=== PATIENT | male | born 1960 | race African-American/Black ===

== ENCOUNTER 2017-11-10 11:57 | Inpatient (IN) | payer OTHER ==
[~2017-11-10] VITALS: Ht 172.7 cm; Wt 79.0 kg
--- NOTE | ~2017-11-10 | EKG ---
[place] [address] [facility] [place] [address] ELECTROCARDIOGRAM REPORT Name: ELAMEVANS ORTA Room #: 204-P ADM IN M.R.#: [id number] Admission: 11/10/17 Attend Phys: Venecia Ordoñez MD Discharge: Date of : 60 Report #: [id number] THIS REPORT FOR: //name// [facility] ED Test Date: 2017-11-10 Test Time: 12:16:06 Pat Name: EVANS ELAM Department: Room: Gender: M Research Nurse: Raza MCLEOD : 1960 Requested By: Sarwat Morgan Order Number: [id number] MD: Asim Richardson Measurements Intervals [place] Rate: 95 P: 68 WV: 193 QRS: 25 QRSD: 85 T: 32 QT: 376 QTc: 473 Interpretive Statements Sinus rhythm Probable left atrial enlargement Probable left ventricular hypertrophy Early repolarization Compared to ECG 09/13/2015 09:25:47 No significant change Electronically Signed On 11-11-2017 12:55:39 CDT by Asim Richardson [email or web address] <ELECTRONICALLY SIGNED> By: Asim Richardson MD 11/11/17 1255 D: [id number] 15 Asim Richardson MD /ELIZABETH
--- NOTE | ~2017-11-10 | H ---
[facility] [place] [address] HISTORY AND PHYSICAL Name: EVANS ELAM Room #: 204-P [facility] IN M.R.#: [id number] Admission: 11/10/17 Attend Phys: Venecia Ordoñez MD Discharge: 11/13/17 Date of : 60 Report #: [id number] THIS REPORT FOR: //name// CC: Venecia Reichistin Maddy DATE OF SERVICE: 11/10/2017 REASON FOR PRESENTATION: Slurred speech. Left-sided weakness. HISTORY OF PRESENT ILLNESS: This is a 57-year-old with past medical history of hypertension, brain aneurysm post coil. He presented with his who works in [employer] reporting that he has some left-sided weakness. also reported stuttering. The patient is not able to provide me with a history. He is not able to communicate, but he is awake and alert. Symptoms started last night. No reported headache, but he suffers from chronic migraines. He did have a hemorrhagic stroke with a brain aneurysm and a coil placed in the past. There seems to be major psychosocial issues. He visited with [facility] Johnson numerous times and was discharged there after complete workup was done. Initially, the workup was negative other than evidence of cardiomyopathy. He was told that he will need to follow up with Cardiology. He had cardiac catheterization and stress test that revealed cardiomyopathy with an ejection fraction of 40%. at bedside reported that he has a longstanding history of manipulative behavior. He also suffers from gambling and debt problems and she pays for all of his bills. Complete workup was done in the Emergency Room with no revealing findings. PAST MEDICAL HISTORY: 1. Hypertension. 2. Cardiomyopathy. 3. Migraines. 4. Diskectomy. 5. Mastectomy. 6. Status post cerebrovascular accident. FAMILY HISTORY: Significant for hypertension and diabetes mellitus. SOCIAL HISTORY: Denies drug or alcohol abuse. He is disabled. REPORTED MEDICATIONS: 1. Medrol Dosepak. 2. Metoprolol. 3. Amlodipine. 4. Clonidine. 5. Ibuprofen. [facility] [address] [address] HISTORY AND PHYSICAL Name: MARIALUISAEVANS Alcon Room #: 204-P [facility] IN ..#: [id number] Admission: 11/10/17 Attend Phys: Venecia Ordoñez MD Discharge: 11/13/17 Date of : 60 Report #: [id number] ALLERGIES: OXYCODONE. REVIEW OF SYSTEMS: Obtained from the : GENERAL: No fever or chills. CARDIOVASCULAR: No chest pain or palpitation. PULMONARY: No cough or hemoptysis. GASTROINTESTINAL: No nausea or vomiting. GENITOURINARY: No frequency, no urgency. NEUROLOGIC: As per the history of present illness. SKIN: No rash or ulcerations. PHYSICAL EXAMINATION: GENERAL: Alert, oriented. VITAL SIGNS: Blood pressure was elevated at 213/109, temperature 36.4, pulse rate 101, respiratory rate 17. HEAD AND NECK: No jugular venous distention, no bruit, no thyromegaly. CHEST: Clear to auscultation bilaterally. CARDIOVASCULAR: Regular with no rub detected. ABDOMEN: Soft, nontender with no hepatosplenomegaly. EXTREMITIES: Lower extremities, no edema. NEUROLOGICAL: The patient is not communicative and not able to provide complete neurological workup. There seems to be a conversion disorder. LABORATORY DATA: Reviewed, essentially unremarkable with almost negative workup. All of the images were reviewed and those were negative. ASSESSMENT, IMPRESSION AND PLAN: 1. Conversion disorder. 2. Hypertension. 3. Hypertensive urgency. 4. Remote history of hemorrhagic stroke. 5. Admission. 6. Neurological evaluation. 7. Needs major psychosocial counseling. 8. Blood pressure control. 9. Deep venous thrombosis and gastrointestinal prophylaxis. 10. He had extensive workup in the past and those were all negative. I see no need for any redundancy. However, if needed, we will ask other specialists to assist. <ELECTRONICALLY SIGNED> By: Venecia Ordoñez MD 11/17/17 0756 [id number] 1531 Venecia Ordoñez MD /nt
--- NOTE | ~2017-11-10 | HC ---
[facility] [place] [address] CONSULTATION Name: EVANS ELAM Room #: 204-P [facility] IN ..#: [id number] Admission: 11/10/17 Attend Phys: Venecia Ordoñez MD Discharge: 11/13/17 Date of : 60 Report #: [id number] THIS REPORT FOR: //name// CC: Venecia Reichistin Maddy DATE OF SERVICE: 11/12/2017 HISTORY OF PRESENT ILLNESS: The patient is a 57-year-old -[place] male who was admitted with slurred speech and left-sided weakness. 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 He was seen by Neurology, noted to have some stuttering speech, which he notes has been going on for about 3 months. The Neurology assessment and plan at the current time is that he has a chronic headache disorder and is status post aneurysm coiling 9 or 10 years ago. Evaluation is continue and an MRI scan is currently pending of his brain. He notes that he has significant left-sided weakness, upper extremity more than lower extremity with a definite decline in his functional status. We are seeing him in rehabilitation medicine consultation. PAST MEDICAL HISTORY: Hypertension, cardiomyopathy, migraines, diskectomy mastectomy, status post cerebrovascular accident. FAMILY HISTORY: Significant for hypertension, diabetes mellitus. MEDICATIONS: Please see the full medication listing. ALLERGIES: Includes supplements, vitamins or herbals. ALLERGIES: OXYCODONE. SOCIAL HISTORY: , lives with his , 2 stories 6 steps in. works here at [facility] [employer] [facility]. The patient is disabled. He notes that there are other family members including a son and niece they are typically with him when his is gone and that he is not home alone. PAST MEDICAL HISTORY: Includes the cluster headaches with Botox every 12 weeks. He also was on Neurontin and Elavil. There is a past history of some manipulative behavior that has been noted as well. HABITS: Tobacco one half pack per day. PHYSICAL EXAMINATION: GENERAL: A pleasant 57-year-old -[place] male, obvious distress. He does have stuttering speech, but he is understandable. [facility] [address] [place] [address] CONSULTATION Name: EVANS ELAM Room #: 204-P [facility] IN ..#: [id number] Admission: 11/10/17 Attend Phys: Venecia Ordoñez MD Discharge: 11/13/17 Date of : 60 Report #: [id number] VITAL SIGNS: Temperature 98, pulse 66, respirations 26, blood pressure 123/75. HEAD, EYES, EARS, NOSE, AND THROAT: Facies appeared to be symmetric. EOMs appeared to be intact. EXTREMITIES: He does have weakness of the left upper extremity, he is able to move it probably grade 3+ to 4-/5. Right upper extremity reveals functional range of motion and strength without focal weakness. Left lower extremity, he has some difficulty moving it is well, probably a grade 3+, 4-. Right lower extremity is appearing and intact. Functional range of motion, strength. He is sit to stand with max assist and gait was mod assist 15 feet from a front-wheeled walker. Therapy noted some emotional lability. ASSESSMENT: A 57-year-old -[place] male with the following problem list: 1. Slurred speech with left-sided weakness. 2. Stuttering speech. 3. Chronic headache disorder. 4. Status post aneurysmal coiling 9 or 10 years ago. 5. History of cluster headaches with intermittent Botox injections. 6. History of hypertension. 7. History of tobacco abuse. 8. History of manipulative behavior. Per chart notes. PLAN: Neurology evaluation is underway. MRI of the brain is pending. Physical therapy and occupational therapy evaluations are underway as well. At this point, we will be glad to follow along regarding his functional deficits and rehabilitation therapy needs and consider further potential inpatient rehabilitation depending upon the above. We will be glad to follow along with you. <ELECTRONICALLY SIGNED> By: Eric Turpin MD 11/16/17 1314 [id number] Eric Turpin MD /[facility]
[~2017-11-10 11:57] MED LIST: ACETAMINOPHEN325 M1 PO; AMITRIPTYLINE H50 M3 PO; AMLODIPINE BESY10 MG PO; ANTIVERT25 MG PO; ASPIRIN81 M2 PO; ATIVAN1 MG PO; BAYER CHEWABLE81 MG PO; CARDIZEM CD180 MG PO; CLONIDINE0.1 PO; COLACE100 MG PO; DIAZEPAM 5 MG5 MG PO; HYDROCODONE-AP1 EAC6 PO; IBUPROFEN 800800 M1 PO; LISINOPRIL20 MG PO; LOPRESSOR50 PO; MEDROLDOSEPACK PO; MILK OF MA2400 MG/10 PO; NICOTINE PATCH; NORCO 5-325 TA1 EACH PO; NORVASC 5 MG TAB5 MG PO; OXYCONTIN20 M1 PO; PERCOCET 5-3251 EACH PO; PRINIVIL20 MG PO; SENNA LAXATIVE8.6 MG PO; ULTRAM 50MG TAB50 MG PO; ZOFRAN4 MG PO
[2017-11-10 12:00] VITALS: BP 213/109
[2017-11-10 12:12] LABS: POC CA IONIZED 4.5 mg/dL (4.5-5.3); POC CREATININE 1.1 mg/dL (0.6-1.3); POC HEMOGLOBIN 14.6 g/dL (14.0-18.0); POC POTASSIUM 4.7 mmol/L (3.5-5.1)
[2017-11-10 12:26] LABS: ABSOLUTE NEUTROPHILS 4.2 thou/uL (1.4-8.2); BASOPHILS 0.8 % (0.0-2.0); EOSINOPHILS 4.1 % (0.0-3.0); HEMATOCRIT 41.8 % (42.0-52.0); HEMOGLOBIN 13.6 gm/dL (14.0-18.0); LYMPHOCYTES 42.1 % (24.0-44.0); MCH 26.8 pg (26.0-34.0); MCHC 32.7 g/dL (28.0-37.0); MCV 82.1 fL (80.0-100.0); MONOCYTES 9.8 % (1.0-8.0); PLATELET COUNT 171 thou/uL (150-400); POLYS 43.2 % (36.0-66.0); RBC 5.09 mil/uL (4.50-6.00); RDW 14.6 % (10.5-14.5); WBC 9.8 thou/uL (4.0-11.0)
[2017-11-10 12:31] LABS: ANION GAP 11 mmol/L (7-16); BUN 8 mg/dL (7-18); CALCIUM 9.3 mg/dL (8.5-10.1); CHLORIDE 103 mmol/L (98-107); CO2 26 mmol/L (21-32); CREATININE 1.2 mg/dL (0.7-1.3); GLUCOSE 100 mg/dL (74-106); POTASSIUM 3.9 mmol/L (3.5-5.1); SODIUM 140 mmol/L (136-145)
[2017-11-10 12:35] LABS: APTT 30.4 Seconds (24.5-32.8)
[2017-11-10 12:39] LABS: ALBUMIN 4.1 g/dL (3.4-5.0); SGOT 30 U/L (15-37); SGPT 21 U/L (30-65); TOTAL BILIRUBIN 0.5 mg/dL (<0.1-1.0); TOTAL PROTEIN 7.9 g/dL (6.4-8.2); TROPONIN-I < 0.04 ng/mL (<0.06)
[2017-11-10 12:48] LABS: D-DIMER 0.47 ug/mLFEU (0.19-0.50)
[2017-11-10 13:52] LABS: URINE BILIRUBIN NEGATIVE (Negative); URINE BLOOD NEGATIVE (Negative); URINE CLARITY CLEAR; URINE COLOR YELLOW; URINE GLUCOSE-RANDOM* NEGATIVE (Negative); URINE KETONES NEGATIVE (Negative); URINE LEUKOCYTES-REFLEX NEGATIVE (Negative); URINE NITRITE-REFLEX NEGATIVE (Negative); URINE PROTEIN (DIPSTICK) NEGATIVE (Negative); URINE UROBILINOGEN 0.2 E.U./dl (0.2-1.0)
[2017-11-10 14:00] LABS: AMP/METHAMP Negative (Negative); BARBITURATES Negative (Negative); BENZODIAZEPINES Negative (Negative); COCAINE Negative (Negative); METHADONE Negative (Negative); OPIATES POSITIVE (Negative); PCP Negative (Negative)
[2017-11-10] MEDS ORDERED: ASPIR 8181 MG PO (15:09)
[2017-11-10] MEDS ORDERED: CARVEDILOL12.5 MG PO (15:09)
[2017-11-10] MEDS ORDERED: CIALIS10 MG PO (15:10)
[2017-11-10] MEDS ORDERED: FLEXERIL PO (15:10)
[2017-11-10] MEDS ORDERED: AMITRIPTYLINE H75 M1 PO (15:10)
[2017-11-10] MEDS ORDERED: LEXAPRO 10 MG T10 M1 PO (15:11)
[2017-11-10] MEDS ORDERED: ATORVASTATIN CA40 MG PO (15:11)
[2017-11-10] MEDS ORDERED: ANTIVERT25 MG PO (15:12)
[2017-11-10] MEDS ORDERED: LISINOPRIL20 MG PO (15:12)
[2017-11-10] MEDS ORDERED: MINOXIDIL10 MG PO (15:12)
[2017-11-10] MEDS ORDERED: SILDENAFIL CIT100 MG PO (15:13)
[2017-11-10] MEDS ORDERED: ZOLOFT50 MG PO (15:13)
[2017-11-10] MEDS ORDERED: TRAMADOL 50 MG50 MG PO (15:14)
[2017-11-10] MEDS ORDERED: ALDACTONE50 MG PO (15:14)
[2017-11-10 15:28] VITALS: BP 147/90
[2017-11-10 16:18] VITALS: BP 176/87
[2017-11-10 19:25] VITALS: BP 1478/79
[2017-11-11 03:40] VITALS: BP 113/64
[2017-11-11 04:05] LABS: HEMATOCRIT 38.4 % (42.0-52.0); HEMOGLOBIN 12.5 gm/dL (14.0-18.0); MCH 26.5 pg (26.0-34.0); MCHC 32.4 g/dL (28.0-37.0); MCV 81.7 fL (80.0-100.0); RBC 4.7 mil/uL (4.50-6.00); RDW 14.8 % (10.5-14.5); WBC 8.2 thou/uL (4.0-11.0)
[2017-11-11 04:19] LABS: ALBUMIN 3.4 g/dL (3.4-5.0); CALCIUM 8.7 mg/dL (8.5-10.1); CREATININE 1.2 mg/dL (0.7-1.3); POTASSIUM 3.9 mmol/L (3.5-5.1); TOTAL BILIRUBIN 0.2 mg/dL (<0.1-1.0); TOTAL PROTEIN 6.7 g/dL (6.4-8.2)
[2017-11-11 07:25] VITALS: BP 151/79
[2017-11-11 11:15] VITALS: BP 92/51
[2017-11-11 16:00] VITALS: BP 119/61
[2017-11-11 19:47] VITALS: BP 111/74
[2017-11-12 03:16] LABS: HEMATOCRIT 37.5 % (42.0-52.0); HEMOGLOBIN 12.2 gm/dL (14.0-18.0); MCH 26.8 pg (26.0-34.0); MCHC 32.6 g/dL (28.0-37.0); MCV 82.2 fL (80.0-100.0); RBC 4.56 mil/uL (4.50-6.00); RDW 14.6 % (10.5-14.5); WBC 7.9 thou/uL (4.0-11.0)
[2017-11-12 03:24] LABS: ALBUMIN 3.3 g/dL (3.4-5.0); CALCIUM 8.6 mg/dL (8.5-10.1); CREATININE 1.1 mg/dL (0.7-1.3); POTASSIUM 4.1 mmol/L (3.5-5.1); TOTAL BILIRUBIN 0.2 mg/dL (<0.1-1.0); TOTAL PROTEIN 6.5 g/dL (6.4-8.2)
[2017-11-12 04:19] VITALS: BP 117/63
[2017-11-12 07:20] VITALS: BP 123/75
[2017-11-12 11:05] VITALS: BP 111/67
[2017-11-12 17:45] VITALS: BP 108/60
[2017-11-12 20:00] VITALS: BP 118/81
[2017-11-13 04:16] LABS: CALCIUM 8.8 mg/dL (8.5-10.1); POTASSIUM 4.2 mmol/L (3.5-5.1)
[2017-11-13 04:30] LABS: BASOPHILS 0.8 % (0.0-2.0); EOSINOPHILS 6.2 % (0.0-3.0); HEMOGLOBIN 12.9 gm/dL (14.0-18.0); LYMPHOCYTES 45.3 % (24.0-44.0); MCH 26.8 pg (26.0-34.0); MCV 81.2 fL (80.0-100.0); MONOCYTES 7.4 % (1.0-8.0); PLATELET COUNT 172 thou/uL (150-400); POLYS 40.3 % (36.0-66.0); RDW 14.3 % (10.5-14.5); WBC 7.6 thou/uL (4.0-11.0)
[2017-11-13 05:13] VITALS: BP 126/79
[2017-11-13 07:48] VITALS: BP 144/86
[2017-11-13 11:05] VITALS: BP 119/68
[2017-11-13 15:28] VITALS: BP 129/79
[2017-11-13] MEDS ORDERED: PREDNISONE 20 M20 MG PO (18:16)
[2017-11-13 18:22] VITALS: BP 119/68
== END 2017-11-13 19:00 | disposition home or self-care (01) | DRG 552 ==
LOC: ER 11:57 → EROBS 14:55 → 2N 14:55
PROVIDERS: Emergency Medicine; Hospitalist
DX: M50.10 Cervical disc disorder with radiculopathy, unspecified cervical region (principal); I69.354 Hemiplegia and hemiparesis following cerebral infarction affecting left non-dominant side; F44.9 Dissociative and conversion disorder, unspecified; F17.210 Nicotine dependence, cigarettes, uncomplicated; I16.0 Hypertensive urgency; G43.909 Migraine, unspecified, not intractable, without status migrainosus; F80.81 Childhood onset fluency disorder; I10 Essential (primary) hypertension; Z79.899 Other long term (current) drug therapy; Z88.5 Allergy status to narcotic agent; Z88.8 Allergy status to other drugs, medicaments and biological substances; Z79.1 Long term (current) use of non-steroidal anti-inflammatories (NSAID); Z82.49 Family history of ischemic heart disease and other diseases of the circulatory system; Z83.3 Family history of diabetes mellitus; Z90.10 Acquired absence of unspecified breast and nipple; Z91.19 Patient's noncompliance with other medical treatment and regimen
CPT/HCPCS: 10194

== ENCOUNTER 2019-01-25 09:47 | Emergency (ER) | payer OTHER ==
[~2019-01-25] VITALS: Ht 175.3 cm; Wt 84.8 kg
[~2019-01-25 09:47] MED LIST changes: +ALDACTONE50 MG PO; +AMITRIPTYLINE H75 M1 PO; +ASPIR 8181 MG PO; +ATORVASTATIN CA40 MG PO; +CARVEDILOL12.5 MG PO; +CIALIS10 MG PO; +FLEXERIL PO; +LEXAPRO 10 MG T10 M1 PO; +MINOXIDIL10 MG PO; +PREDNISONE 20 M20 MG PO; +SILDENAFIL CIT100 MG PO; +TRAMADOL 50 MG50 MG PO; +ZOLOFT50 MG PO
[2019-01-25] MEDS ORDERED: VALIUM5 MG PO (11:21)
[2019-01-25] MEDS ORDERED: NAPROSYN500 MG PO (11:21)
[2019-01-25] MEDS ORDERED: TRAMADOL 50 MG50 MG PO (11:23)
[2019-01-25 11:56] VITALS: BP 187/95
== END 2019-01-25 12:00 | disposition home or self-care (01) ==
LOC: ER 09:47
DX: M43.6 Torticollis (principal); M25.512 Pain in left shoulder; G89.29 Other chronic pain; I10 Essential (primary) hypertension; G43.909 Migraine, unspecified, not intractable, without status migrainosus; F17.210 Nicotine dependence, cigarettes, uncomplicated; Z86.73 Personal history of transient ischemic attack (TIA), and cerebral infarction without residual deficits; Z88.6 Allergy status to analgesic agent; Z88.8 Allergy status to other drugs, medicaments and biological substances